=== PATIENT | female | born 1945 | race African-American/Black ===

== ENCOUNTER → 2016-10-17 | Outpatient (CLI) | payer BC, MEDICARE ==
[~2016-10-17] MED LIST: HYDROCODON-ACE1 EAC7 PO; MIRALAX17 GM PO; PANTOPRAZOLE SO40 MG PO; ULORIC40 MG PO; VALSARTAN-HCTZ1 EAC2 PO; ZYRTEC10 M2 PO
--- NOTE | ~2016-10-17 | MY11 ---
[facility] A Service of [facility] RADIOLOGY TEXT RESULTS PATIENT: BECCA JONES LOCATION: [facility] : 43 UNIT #: [id number] AGE: [address]: Joshua Warren MD SEX: F ORDER DR: [id number] [facility]. [place], [place] [address] [id number] O MR#: [id number] Acc #: [id number] NAME: BECCA JONES : 1945 SEX: F STUDY DATE/TIME: 10/17/2016 9:00 UNIT: [facility] ROOM: STUDY DESCRIPTION: MY Mammogram Screening Dig Dusty Attending Physician: Joshua Warren M.D. Referring Physician: Joshua Warren M.D. Ordering Physician: Joshua Warren M.D. Primary Care Physician: Joshua Warren M.D. MEDICAL IMAGING REPORT This report is preliminary unless electronic signature is present EXAM Bilateral digital screening mammogram with CAD, 10/17/2016. INDICATION 71-year-old female for routine screening. No reported problems. No personal or family history of breast cancer. History of core biopsy on the left and stereo biopsy on the left with benign results. TECHNIQUE CC and MLO views of the breast were obtained and reviewed with an FDA-approved CAD device. COMPARISON 07/20/2015, 06/08/2015, 04/30/2015, 01/26/2013, 02/03/2013, 01/26/2013, and 01/14/2013. FINDINGS Breast parenchyma is composed of scattered fibroglandular densities. The pattern is unchanged. There is no new dominant nodule, mass, or suspicious cluster of microcalcifications. Benign calcifications are present. Biopsy clips present in the left breast. IMPRESSION Benign screening mammogram. 1 year followup recommended. Patients over the age of 40 are entered into a reminder system with target due date for the next mammogram. A result letter will also be sent to the patient. BIRADS: 2 Benign finding. [facility] A Service of [facility] RADIOLOGY TEXT RESULTS PATIENT: BECCA JONES LOCATION: [facility] : 43 UNIT #: [id number] AGE: [address]: Joshua Warren MD SEX: F ORDER DR: Dictated by... Irvin Melchor M.D. THIS IS AN ELECTRONICALLY VERIFIED REPORT Irvin Melchor M.D. at 10/17/2016 4:50 PM JANEEN/noah TD: 10/17/2016 12:45 JOB #: [id number] MEDICAL IMAGING REPORT Page 1 of 1 COPY
== END | disposition home or self-care (01) ==
LOC: CWCC 08:31
DX: Z12.31 Encounter for screening mammogram for malignant neoplasm of breast (principal); Z98.890 Other specified postprocedural states
CPT/HCPCS: G0202